=== PATIENT | male | born 1980 | race Caucasian/White ===

== ENCOUNTER 2016-06-13 13:24 | Emergency (ER) | payer SELFPAY ==
[~2016-06-13] VITALS: Ht 180.3 cm; Wt 72.6 kg
[2016-06-13] MEDS ORDERED: SULFAMETH/TRIMETH 800/160 MG TABLET PO ONE (14:15)
--- NOTE | 2016-06-13 14:15 | NUR ---
Pt c/o swelling in his left lower leg x 3-4 days. Pt has +2 pitting edema and redness on the left lower limb, PMS intact, cap refill <2 sec. Pt denies pain or numbness/tingling, has hx of left leg surgery for excising Necrotizing fasciitis. No other complaints, no distress noted.
[2016-06-13 15:04] LABS: BASOPHILS # (AUTO) 0.1 K/uL (0.0-8.0); BASOPHILS % (AUTO) 1.6 % (0.0-2.0); EOSINOPHILS # (AUTO) 0.3 K/uL (0.0-0.7); EOSINOPHILS % (AUTO) 3.3 % (0.0-7.0); HEMATOCRIT 38.7 % (36.7-47.1); HEMOGLOBIN 12.9 g/dL (12.5-16.3); LYMPHOCYTES # (AUTO) 2.4 K/uL (40.0-85.0); LYMPHOCYTES % (AUTO) 29.1 % (20.5-51.5); MEAN CORPUSCULAR HEMOGLOBIN 29.1 uug (23.8-33.4); MEAN CORPUSCULAR HGB CONC 34 g/dL (32.5-36.3); MEAN CORPUSCULAR VOLUME 86.9 fL (73.0-96.2); NEUTROPHILS # (AUTO) 4.4 K/uL (1.8-8.9); PLATELET COUNT (AUTO) 305 K/uL (152-348); RED BLOOD CELL COUNT(AUTO) 4.45 MIL/uL (4.06-5.63); RED CELL DISTRIBUTION WIDTH 14.5 % (12.1-16.2); WHITE BLOOD COUNT (AUTO) 8.2 K/uL (3.6-10.2)
[2016-06-13 15:11] LABS: CALCIUM 8.6 mg/dL (8.5-10.1); CREATININE 0.8 mg/dL (0.6-1.3); POTASSIUM 3.6 mmol/L (3.5-5.1)
[2016-06-13 15:22] LABS: ALBUMIN 3.2 g/dL (3.4-5.0); BILIRUBIN,DIRECT 0.1 mg/dL (0.0-0.2); BILIRUBIN,TOTAL 0.5 mg/dL (0.2-1.0)
--- NOTE | 2016-06-13 15:38 | NUR ---
Patient discharged to home in stable conditon. Written and verbal after care instructions given. Patient verbalizes understanding of instructions.pt walks in steady gait, accompanied by so. copy of labs given per pt request
[2016-06-13 15:39] VITALS: BP 119/88
[2016-06-13] MEDS ORDERED: SULFAMETH/TRIMETH 800/160 MG TABLET ONE (15:39)
== END 2016-06-13 15:40 | disposition home or self-care (01) ==
LOC: ER 13:24
DX: L03.116 Cellulitis of left lower limb (principal); F19.10 Other psychoactive substance abuse, uncomplicated; Z86.19 Personal history of other infectious and parasitic diseases
CPT/HCPCS: 36415; 80048; 80076; 85025; 99284; A4663